=== PATIENT | male | born 1980 | race Caucasian/White ===

== ENCOUNTER 2024-03-18 21:45 | Inpatient (IN) | payer BC, OTHER ==
[2024-03-18 21:52] VITALS: BMI 21.4
[2024-03-18] MEDS ORDERED: morphine SULFATE 4 MG/ML VIAL ONE (22:45)
[2024-03-18] MEDS ORDERED: ONDANSETRON 4 MG/2 ML VIAL ONE (22:45)
[2024-03-18] MEDS: ONDANSETRON *ODT* 4 MG TABLET SL ONE (22:53)
[2024-03-18] MEDS: LACTATED RINGERS SOLUTION 1000 ML INFUS.BAG IV ONE (22:53)
[2024-03-18] MEDS: morphine CARPU-JECT 2 MG/1 ML DISP.SYRIN IVPUSH ONE (22:53)
[2024-03-18 23:03] LABS: BASO % 0.8 % (0-2.0); EOS % 3.6 % (0-4.5); HEMATOCRIT 35.1 % (35.4-49); HEMOGLOBIN 11.8 GM/dL (11.7-16.9); LYMPH % 24.4 % (8-40); MCH 30.2 pg (25.7-33.7); MCHC 33.6 g/dl (32.0-35.9); MEAN CELL VOLUME 89.9 fl (80-96); MEAN PLT VOLUME 6.9 fl (7.5-11.1); MONO % 13.1 % (3.8-10.2); NEUT % 58.1 % (42.8-82.8); PLATELET COUNT 353 10^3/uL (134-434); RDW 16.2 % (11.9-15.9); WHITE BLOOD COUNT 5.3 K/mm3 (4.0-10.0)
[2024-03-18 23:08] LABS: INR 0.92 (0.83-1.09); PROTHROMBIN TIME (PATIENT) 10.4 SEC (9.7-13.0)
[2024-03-18 23:11] LABS: ACTIVATED PTT 35.3 SECONDS (25.2-36.5)
[2024-03-18 23:20] LABS: POTASSIUM 5.1 mmol/L (3.5-5.1)
[2024-03-18 23:22] LABS: ALBUMIN 3.4 g/dl (3.4-5.0); CALCIUM 9.7 mg/dL (8.5-10.1)
[2024-03-18 23:23] LABS: BLOOD UREA NITROGEN 12.9 mg/dL (7-18)
[2024-03-18 23:25] LABS: CREATININE 0.9 mg/dL (0.55-1.3)
[2024-03-18 23:27] LABS: BILIRUBIN,TOTAL 0.5 mg/dL (0.2-1); TOT PROT 8.3 g/dl (6.4-8.2)
[2024-03-18 23:37] LABS: LACTIC ACID 2.2 mmol/L (0.4-2.0)
[2024-03-19] MEDS ORDERED: morphine SULFATE 4 MG/ML VIAL ONE (00:02)
[2024-03-19] MEDS: morphine CARPU-JECT 2 MG/1 ML DISP.SYRIN IVPUSH ONE (00:04)
[2024-03-19] MEDS ORDERED: ACETAMINOPHEN INJECTION 100 ML IVPB ONE (00:16)
[2024-03-19] MEDS: ACETAMINOPHEN 1000 MG/100 ML BAG IVPB ONE (00:58)
[2024-03-19] MEDS: ENOXAPARIN NA (PORCINE) 40 MG/0.4 ML DISP.SYRIN SQ ONE (01:26)
[2024-03-19 01:28] VITALS: BP 136/86; PULSE 70; RESP 13; TEMP 98.9
[2024-03-19] MEDS ORDERED: ENOXAPARIN NA (PORCINE) 60 MG/0.6 ML DISP.SYRIN SQ ONE (01:29)
[2024-03-19] MEDS ORDERED: HYDROmorphone HCl 2 MG/ML VIAL ONE ×2 (01:29→02:17)
[2024-03-19] MEDS: HYDROmorphone HCl 2 MG/ML VIAL IVPUSH ONE ×2 (01:35→02:22)
[2024-03-19] MEDS: ENOXAPARIN NA (PORCINE) 60 MG/0.6 ML DISP.SYRIN SQ ONE (01:35)
[2024-03-19] MEDS ORDERED: HYDROmorphone HCl 2 MG/ML VIAL IVPUSH PRN (01:49)
== END 2024-03-19 02:52 | disposition left against medical advice (07) | DRG 376 ==
LOC: JER 21:45 → JERBED 03-19 01:57
PROVIDERS: ADMIT Internal Medicine; ATTEND Internal Medicine
DX: C20 Malignant neoplasm of rectum (principal); G40.909 Epilepsy, unspecified, not intractable, without status epilepticus
CPT/HCPCS: 36415; 71045-TC-FY; 74177-TC; 80053; 83605; 83690; 83735; 85025; 85610; 85730; 86850; 86900; 86901; 99285-25; Q0162; Q9967